=== PATIENT | female | born 1960 | race Caucasian/White ===

== ENCOUNTER → 2017-03-08 | Outpatient (CLI) | payer BC ==
[~2017-03-08] MED LIST: MULT-506 PO; NAPR220T40 OR
--- NOTE | 2017-03-08 16:26 | MAMMOGRAPHY REPORT ---
BILATERAL DIGITAL SCREENING MAMMOGRAM TOMOSYNTHESIS WITH CAD: 03/08/2017 CLINICAL HISTORY: Routine screening. Patient has no complaints. TECHNIQUE: Breast tomosynthesis in addition to standard 2D mammography was performed. Current study was also evaluated with a Computer Aided Detection (CAD) system. COMPARISON: Comparison is made to exams dated: 01/20/2016 mammogram, 01/15/2015 mammogram, 11/28/2013 ma mmogram, 11/21/2013 mammogram, 11/16/2012 mammogram, and 11/11/2011 mammogram - [facility] [address]. BREAST COMPOSITION: The tissue of both breasts is heterogeneously dense, which may obscure small mas ses. FINDINGS: There are scattered stable benign-appearing microcalcifications in the breast. Minimal vas cular calcification as well. No suspicious mass, architectural distortion or cluster of new, suspici ous microcalcifications is seen. IMPRESSION: ACR BI-RADS CATEGORY 1: NEGATIVE There is no mammographic evidence of malignancy. A 1 year screening mammogram is recommended. The pa tient will receive written notification of the results. Approximately 10% of breast cancers are not detected with mammography. A negative mammographic report should not delay biopsy if a clinically suggestive mass is present. Allyn Henderson M.D. ay/:03/08/2017 15:06:33 Macroeconomics Professor: Shena Mccracken, [facility] letter sent: Normal 1/2 BI-RADS Code: ACR BI-RADS Category 1: Negative
== END | disposition home or self-care (01) ==
LOC: C.MAMM 12:24
PROVIDERS: ATTEND Nurse Practitioner Family
DX: Z12.31 Encounter for screening mammogram for malignant neoplasm of breast (principal)

== ENCOUNTER → 2017-05-05 | Outpatient (CLI) | payer BC ==
--- NOTE | 2017-05-05 10:59 | DIAGNOSTIC IMAGING REPORT ---
KUB CLINICAL HISTORY: Nephrolithiasis. FINDINGS: An AP supine abdominal radiograph is compared to study dated 03/04/2015. There is a nonobstructed abdominal bowel gas pattern. Moderate colonic fecal retention is observed. No renal calculi are clearly identified. The bony structures appear intact. IMPRESSION: There is no clear radiographic evidence of nephrolithiasis on today's examination. Electronically signed by: Horacio Samuels M.D. 05/05/2017 10:58 AM Dictated Date/Time: 05/05/2017 10:57 AM
== END | disposition home or self-care (01) ==
LOC: C.RAD 09:57
PROVIDERS: ATTEND Urology
DX: N20.0 Calculus of kidney (principal)

== ENCOUNTER → 2018-05-10 | Outpatient (CLI) | payer BC ==
--- NOTE | 2018-05-10 11:51 | DIAGNOSTIC IMAGING REPORT ---
KUB CLINICAL HISTORY: 57 years-old Female presenting with N20.0 [id number]. TECHNIQUE: Single supine view of the abdomen was obtained. COMPARISON: 05/05/2017. FINDINGS: Moderate stool burden noted throughout the colon. Nonobstructive bowel gas pattern. No gross pneumoperitoneum. Suggestion of calculi at the bilateral lower poles of the kidneys. No new sites of renal calculi. Significant stool burden degrades evaluation for ureteral calculi. Allowing for this, no evidence of ureteral calculi. Osseous structures normal. Lung bases clear. IMPRESSION: 1. Bilateral nephrolithiasis. No radiographic evidence of ureteral calculi. Electronically signed by: Justo Bahena M.D. 05/10/2018 11:50 AM Dictated Date/Time: 05/10/2018 11:47 AM
== END | disposition home or self-care (01) ==
LOC: C.RAD 11:24
PROVIDERS: ATTEND Urology
DX: N20.0 Calculus of kidney (principal)